=== PATIENT | female | born 1960 | race Asian ===

== ENCOUNTER 2022-05-29 12:02 | Day surgery (SDC) | payer OTHER ==
[~2022-05-29] VITALS: Ht 157.5 cm; Wt 49.9 kg
[2022-05-29] MEDS ORDERED: LIDOCAINE 2% 100 MG/5 ML UJET TP ONE (14:01)
[2022-05-29] MEDS ORDERED: MIDAZOLAM 5 MG/5 ML VIAL ONE (14:01)
[2022-05-29] MEDS ORDERED: fentaNYL citrate 0.05 MG/ML VIAL ONE (14:01)
== END 2022-05-29 15:22 | disposition home or self-care (01) ==
LOC: MDS 12:02 → MMU 12:02 → MDS 15:22
PROVIDERS: ATTEND Internal Medicine Gastroenterology
DX: Z12.11 Encounter for screening for malignant neoplasm of colon (principal); R13.10 Dysphagia, unspecified; Z20.822 Contact with and (suspected) exposure to COVID-19
CPT/HCPCS: 88305; J2250; J3010